=== PATIENT | female | born 1955 | race Two or more races ===

== ENCOUNTER 2024-02-16 15:20 | Emergency (ER) | payer OTHER, SELFPAY ==
[2024-02-16 15:23] VITALS: BP 149/78
[2024-02-16 15:45] LABS: % Basophils 0.3 % (0-2); % Eosinophils 0.3 % (0-6); % Immature Granulocytes 0.6 % (0-0.5); % Lymphocytes 7.7 % (20.5-51.1); % Monocytes 4.8 % (1.7-9.3); % Neutrophils 86.3 % (42.2-75.2); Absolute Immature Granulocytes 0.1 10^3/uL (0-0.05); Absolute Monocytes 0.6 10^3/uL (0.1-0.6); Absolute Neutrophils 11.1 10^3/uL (1.4-6.5); Hematocrit 39.9 % (37.0-47.0); Hemoglobin 13.3 g/dL (12.0-16.0); Mean Corp Hgb Conc. 33.3 g/dL (33.0-37.0); Mean Corpuscular Hgb 28.1 pg (27.0-31.0); Mean Corpuscular Volume 84.2 fL (81.0-99.0); Mean Platelet Volume 10.1 fL (7.4-10.4); Nucleated Red Blood Cells % 0 %; Platelet Count 306 10^3/uL (130-400); Red Blood Cell Count 4.74 10^6/uL (4.20-5.40); Red Cell Dist. Width 14.7 % (11.5-14.5); White Blood Cell Count 12.8 10^3/uL (4.8-10.8)
[2024-02-16 15:56] LABS: INR 1.18; PT 14.8 Sec (11.4-14.6)
[2024-02-16 15:58] LABS: ALT (SGPT) 16 U/L (0-35); AST (SGOT) 22 U/L (14-36); Albumin 4.3 g/dl (3.5-5.0); Alkaline Phosphatase 102 U/L (38-126); Blood Urea Nitrogen 21 mg/dl (7-17); Calcium 9.3 mg/dl (8.4-10.2); Carbon Dioxide 28 mmol/L (22-30); Chloride 99 mmol/L (98-107); Glucose 141 mg/dl (70-99); Potassium 4.2 mmol/L (3.5-5.1); Sodium 136 mmol/L (135-145); Total Bilirubin 0.7 mg/dl (0.2-1.3); Total Protein 7.8 g/dl (6.3-8.2); eGFR > 60.00
--- NOTE | 2024-02-16 16:08 | ED.GENMED ---
History of Present Illness
<Violette Schaefer PA-C - Last Filed: 02/16/24 18:45>
General
Chief Complaint: Cold/Flu/URI Symptoms
Source: patient
Exam Limitations: none
Time Seen by Provider: 02/16/24 15:47
Nursing documentation reviewed up to this point in time: agreed with
Travel History
Have you had any contact with someone who has COVID-19?: No
Do you have any symptoms of coronavirus? Fever > 100 degrees, chills, cough, shortness of breath, sore throat, loss of taste or smell, muscle aches, or headache?: No
History of Present Illness
History of Present Illness:
Patient is 69-year-old female with history hypertension, hypothyroid, asthma presenting for evaluation of worsening cough in the setting of other upper respiratory symptoms. Patient states that last Saturday she started with a sore throat and nasal
congestion. Symptoms persisted and she was seen by her primary care provider on where she had a negative rapid strep test. Throat culture is still pending. She was then started on a course of prednisone 20 mg twice a day by her PCP.
Sore throat is starting to improve but cough and chest tightness have continued and started to worsen yesterday. She reports a productive cough with green/brown sputum. Denies any hemoptysis. She is having difficulty sleeping due to cough and
mild shortness of breath when laying flat. Patient denies any fever, chills, chest pain, shortness of breath.
Patient's daughter and grandson also recently had similar upper respiratory infection.
Patient does report a history of asthma but no longer needs inhalers.
Past History
<Violette Schaefer PA-C - Last Filed: 02/16/24 18:45>
Past History
ED Past Medical History: Arrthythmia, HTN and Hypothyroidism
ED Past Surgical History: None
Social History
Tobacco: Non-smoker
Alcohol: None
Drug: None
Living: with family
Employment: Retired
Phy Exam
<Violette Schaefer PA-C - Last Filed: 02/16/24 18:45>
Physical Exam
Physical Exam:
General: Well appearing and non-toxic
Vitals: Mildly hypertensive, otherwise vital signs stable; afebrile
HEENT: Atraumatic, normocephalic; pupils equal round and reactive to light bilaterally, posterior pharynx mildly erythematous without any significant tonsillar edema or exudates, uvula midline, protecting airway
Neck: appears supple, trachea midline, no meningeal sign
CV: Regular rate and rhythm, heart sounds normal, no evidence of cyanosis
Resp: No evidence of respiratory distress, O2 sat 99 on room air, scattered bilateral expiratory wheeze
Abd: Non-distended
Extremities: No deformities no evidence of cyanosis or edema; DP pulses palpable bilaterally
Neuro: alert and oriented x 3; grossly intact
Psych: Normal affect
Skin: Intact, no rashes
Course
<Violette Schaefer PA-C - Last Filed: 02/16/24 18:45>
Orders/Labs/Results
Orders:
Orders
02/16/24 15:29
EKG [Electrocardiogram (*1)] Urgent
Reason for Study: Chest Pain
EKG- Treatment ONCE
CR Chest - 2 Views Urgent
Comment:
Reason For Exam: chest pain
02/16/24 15:39
Complete Blood Count/With Diff Urgent
Comprehensive Metabolic Panel Urgent
Prothrombin Time Urgent
Troponin I Urgent
02/16/24 16:14
Ipratropium/Albuterol Sulfate [Duoneb] 3 ml INH R NOW STA
02/16/24 16:21
COVID-19 Antigen Urgent
Source: Nasal Swab
Influenza A+B Rapid Molecular Urgent
AI Source: Nasal Swab
Specimen Description:
02/16/24 16:32
Prednisone [Deltasone] 20 mg PO NOW STA
02/16/24 17:13
Ipratropium/Albuterol Sulfate [Duoneb] 3 ml INH R NOW STA
Abnormal Lab Results
02/16/24
15:39
WBC 12.8 H 10^3/uL
(4.8-10.8)
RDW 14.7 H %
(11.5-14.5)
Abs Immat Gran (auto) 0.1 H 10^3/uL
(0-0.05)
Absolute Neuts (auto) 11.1 H 10^3/uL
(1.4-6.5)
Absolute Lymphs (auto) 1.0 L 10^3/uL
(1.2-3.4)
Immature Gran % 0.6 H %
(0-0.5)
Neutrophils % 86.3 H %
(42.2-75.2)
Lymphocytes % 7.7 L %
(20.5-51.1)
PT 14.8 H Sec
(11.4-14.6)
BUN 21 H mg/dl
(7-17)
Glucose 141 H mg/dl
(70-99)
02/16/24 15:39
02/16/24 15:39
Vital Signs
Initial and Last Documented VS:
Initial Vital Signs
Temp Pulse Resp BP Pulse Ox
98.8 F 75 17 149/78 99
02/16/24 15:23 02/16/24 15:23 02/16/24 15:23 02/16/24 15:23 02/16/24 15:23
Last Documented Vital Signs
Temp Pulse Resp BP Pulse Ox
98.8 F 62 18 118/90 98
02/16/24 15:23 02/16/24 17:00 02/16/24 17:00 02/16/24 17:00 02/16/24 17:00
<Radha Prieto MD - Last Filed: 02/16/24 16:34>
Orders/Labs/Results
Orders:
Orders
02/16/24 15:29
EKG [Electrocardiogram (*1)] Urgent
Reason for Study: Chest Pain
EKG- Treatment ONCE
CR Chest - 2 Views Urgent
Comment:
Reason For Exam: chest pain
02/16/24 15:39
Complete Blood Count/With Diff Urgent
Comprehensive Metabolic Panel Urgent
Prothrombin Time Urgent
Troponin I Urgent
02/16/24 16:14
Ipratropium/Albuterol Sulfate [Duoneb] 3 ml INH R NOW STA
02/16/24 16:21
COVID-19 Antigen Urgent
Source: Nasal Swab
Influenza A+B Rapid Molecular Urgent
AI Source: Nasal Swab
Specimen Description:
02/16/24 16:32
Prednisone [Deltasone] 20 mg PO NOW STA
02/16/24 17:13
Ipratropium/Albuterol Sulfate [Duoneb] 3 ml INH R NOW STA
Abnormal Lab Results
02/16/24
15:39
WBC 12.8 H 10^3/uL
(4.8-10.8)
RDW 14.7 H %
(11.5-14.5)
Abs Immat Gran (auto) 0.1 H 10^3/uL
(0-0.05)
Absolute Neuts (auto) 11.1 H 10^3/uL
(1.4-6.5)
Absolute Lymphs (auto) 1.0 L 10^3/uL
(1.2-3.4)
Immature Gran % 0.6 H %
(0-0.5)
Neutrophils % 86.3 H %
(42.2-75.2)
Lymphocytes % 7.7 L %
(20.5-51.1)
PT 14.8 H Sec
(11.4-14.6)
BUN 21 H mg/dl
(7-17)
Glucose 141 H mg/dl
(70-99)
02/16/24 15:39
02/16/24 15:39
Vital Signs
Initial and Last Documented VS:
Initial Vital Signs
Temp Pulse Resp BP Pulse Ox
98.8 F 75 17 149/78 99
02/16/24 15:23 02/16/24 15:23 02/16/24 15:23 02/16/24 15:23 02/16/24 15:23
Last Documented Vital Signs
Temp Pulse Resp BP Pulse Ox
98.8 F 62 18 118/90 98
02/16/24 15:23 02/16/24 17:00 02/16/24 17:00 02/16/24 17:00 02/16/24 17:00
<Violette Schaefer PA-C - Last Filed: 02/16/24 18:45>
MDM/Problems Addressed
Differential Diagnosis Includes:
Viral illness (COVID/flu), bronchitis, asthma exacerbation, pneumonia, etc.
MDM/Problems Addressed:
Patient is a 69 year old female with history as documented presenting for evaluation of worsening cough in setting of upper respiratory infection. Patient had negative rapid strep test and is currently being treated with low-dose prednisone as
prescribed with PCP. No fever, chills, chest pain. Productive cough worsening over the past 2 days. Patient's vital signs are stable, afebrile. Oxygen saturation is 99 on room air. Physical exam as documented above. She is well-appearing and
in no apparent respiratory distress. Heart regular rate and rhythm, lungs with scattered wheezes throughout. Her oxygen saturation is 98 on room air. Basic labs obtained in triage show mild leukocytosis of 12.8 likely reactive from steroid use.
Otherwise no clinically significant abnormalities. CMP without any clinically significant abnormalities. Chest x-ray pending. Will check viral swabs. Will give DuoNeb and additional 20 mg prednisone and reassess. I do suspect this is all an
asthma exacerbation with associated acute bronchitis secondary to viral upper respiratory infection.
Into reassess patient following first DuoNeb. She states that she feels slightly better but is still wheezing. Peak flow of 230. Will repeat DuoNeb and reassess
Chest x-ray shows no signs of acute disease or pneumonia. COVID and flu negative-patient has been sick for 6 days so this does not exclude the possibility that the initial viral cause is 1 of these
6:10 PM: At patient bedside to reassess patient her peak flow has increased to 250 following second DuoNeb. She states she does feel some improvement in wheezing since arriving in the emergency department. On lung auscultation�wheezing has
decreased significantly throughout.
Although there is still some mild scattered wheeze, patient has remained stable with an oxygen saturation in upper 90s on room air throughout her duration of stay in the emergency department. She is stable for discharge charged with steroid taper
course outpatient albuterol inhaler. Return precautions discussed. She will follow-up with her primary care provider tomorrow.
Chronic conditions affecting care:
Hypertension, asthma
Acute Exacerbation and/or Progression of Chronic Illness:
Acute asthma exacerbation, acute bronchitis
<Violette Schaefer PA-C - Last Filed: 02/16/24 18:45>
*Radiology
Radiology exam reviewed: preliminary read by ED provider and radiology read reviewed
*Pulse Oximetry
Patient hypoxic: no
*EKG
Interpreted by ED Provider?: NA
*Materials Supervisor Interpretation
Rate: Materials Supervisor- N/A
*Critical Care Note
Total Time (30-74mins, 75-104mins- exclusive of procedures): Not Applicable
ED Attending Note
<Violette Schaefer PA-C - Last Filed: 02/16/24 18:45>
-
Portions of this chart may have been created with voice recognition software.� Occasional wrong word or��sound alike� substitutions may have occurred due to the inherent limitations of voice recognition software.
<Radha Prieto MD - Last Filed: 02/16/24 16:34>
ED Attending Note
Patient seen and examined by attending physician: Yes
I performed the substantive portion of visit, reviewed & personally made and approve the management plan that is documented in note by myself or JULIÁN.: Yes
ED Attending Note:
69-year-old female presents emergency department with several days of nasal congestion, sore throat, hoarse voice, chest tightness with cough only, phlegm. She saw her doctor this week and had a strep test that was negative. She was started on
prednisone, 40 mg daily x 3 days, then 20 mg daily x 3 days. She just started 20 mg today. She presents today because her cough is more prominent. She denies hemoptysis, leg swelling, recent immobilization, recent trauma, abdominal pain, back
pain, neck pain, headache, dizziness. On exam, patient has obvious nasal congestion. No trismus, no drool, voice clear, uvula midline, no posterior exudate. Neck is supple, trachea midline, no swelling noted. Heart regular rate and rhythm.
Lungs no respiratory distress, speaks in full sentences, obvious cough noted, wheezing noted throughout, occasional rhonchi, no rales, legs no edema. Highly doubt pulmonary edema/heart failure, chest x-ray does not demonstrate specific pneumonia.
Strongly suspect URI/bronchitis as a cause of her symptoms with associated asthma exacerbation. Will increase her steroids, and add a nebulizer here, COVID and flu pending
Discharge Plan
Departure
Patient Disposition: Home (Routine Discharge)
Date of Disposition: 02/16/24
Time of Disposition: 18:06
Patient with high blood pressure during this ER visit?: Yes
Condition: Good
Covid-19: Not Applicable
Discharge Problem:
Acute asthma exacerbation, Acute bronchitis
Instructions: Asthma, Adult (DC), Acute Bronchitis, Adult (DC), Viral Upper Respiratory Infection, Adult (DC), BLOOD PRESSURE
Prescriptions:
New
prednisone 10 mg tablet
10 mg PO DIRECTED Qty: 42 0RF
Rx Instructions:
Take 60mg x2 days; then 50mg x2 days, then 40 mg x2 days, then 30mg x2 days, then 20mg x2 days, then 10mg x2 days
albuterol sulfate [ProAir HFA] 90 mcg/actuation HFA aerosol inhaler
1 puff inhalation Q4HPRN PRN (Reason: cough, wheeze) Qty: 8.5 0RF
Referrals:
Eric Hickman MD [Family Provider] - Tomorrow
Activity Restrictions/Additional Instructions:
- Return to the emergency department with any shortness of breath, difficulty breathing, high fevers, chest pain, coughing up blood, severe headache, worsening in current symptoms, or any other concerns
-The prescriptions have not sent to your pharmacy. You should start the prednisone taper course tomorrow. Follow directions as written. You can use the inhaler every 4 hours as needed for cough/wheezing
-As discussed�you should follow-up with your primary care provider tomorrow for an appointment early this week to ensure symptoms are improving.
Interventions
Interventions:
*Risk Screen - Suicide Last Done: 02/16/24 15:28
*General Assessment Last Done: 02/16/24 15:28
*Neglect/Abuse Screening Last Done: 02/16/24 15:28
*ED COVID-19 Vaccine History Last Done: 02/16/24 15:28
ED- Pulmonary Assessment Last Done: 02/16/24 17:57
[2024-02-16 16:09] LABS: Troponin I < 0.012 ng/ml
--- NOTE | 2024-02-16 16:15 | EDRN ---
Walter Schaefer PA in to see pt.
[2024-02-16 16:24] VITALS: BMI 30.4
--- NOTE | 2024-02-16 16:24 | EDRN ---
Dr. Prieto in to see pt.
[2024-02-16 16:27] VITALS: BP 147/78
[2024-02-16] MEDS: DUONEB 3 ML INH ×2 (16:35→17:33)
[2024-02-16 16:51] LABS: COVID-19 Antigen Negative (Negative)
[2024-02-16 17:00] VITALS: BP 118/90
[2024-02-16] MEDS: DELTASONE 20 MG PO (17:34)
[2024-02-16 18:30] VITALS: BP 121/72
== END 2024-02-16 18:56 | disposition home or self-care (01) ==
LOC: EMR 15:20
PROVIDERS: Physician Assistant; EMERGENCY PHYSICIAN Emergency Medicine; FAMILY PHYSICIAN Family Medicine
DX: J20.9 Acute bronchitis, unspecified (principal); J45.901 Unspecified asthma with (acute) exacerbation; I10 Essential (primary) hypertension; Z11.52 Encounter for screening for COVID-19
CPT/HCPCS: 99285; 94640; 71046; 80053; 84484; 85025; 85610; 87502; 87811; 93005